=== PATIENT | male | born 1960 | race Two or more races ===

== ENCOUNTER 2020-06-08 13:12 | Emergency (ER) | payer OTHER ==
[~2020-06-08] VITALS: Ht 170.2 cm; Wt 72.6 kg
== END 2020-06-08 19:34 | disposition home or self-care (01) ==
LOC: ER 13:12
DX: S32.010A Wedge compression fracture of first lumbar vertebra, initial encounter for closed fracture (principal); W13.2XXA Fall from, out of or through roof, initial encounter; Y93.89 Activity, other specified; Y92.098 Other place in other non-institutional residence as the place of occurrence of the external cause; Y99.8 Other external cause status